=== PATIENT | female | born 1990 | race Caucasian/White ===

== ENCOUNTER 2016-06-11 18:29 | Emergency (ER) | payer BC ==
--- NOTE | 2016-06-12 18:30 | ER ---
ADMIT: 06/11/2016 RM/LOC: ER [facility] MR#: [id number] [facility] [id number] [address]OUS[address] [place], [place] [id number] Emergency Room Report SEX: F AGE: 26 : 1990 DATE: 06/11/2016 The patient is a 26-year-old female, complaining of difficulty breathing past three days. Exam remarkable for nontoxic, afebrile female with minimal wheezing, responded well to DuoNeb, prednisone 40 mg load and 40 mg taper over the next 10 days. Refilled albuterol. Follow up Dr. Whaley as needed. Hill Adkins MD/ modl JOB #: [id number] CC: Lex Frazier MD, Attending Physician Kai Whaley MD, Family Physician Kai Whaley MD
== END 2016-06-11 19:21 | disposition home or self-care (01) ==
LOC: ER 18:29
DX: J45.909 Unspecified asthma, uncomplicated (principal); Z98.51 Tubal ligation status; Z88.1 Allergy status to other antibiotic agents; Z79.899 Other long term (current) drug therapy